=== PATIENT | female | born 1955 | race Caucasian/White ===

== ENCOUNTER 2017-11-04 15:56 | Outpatient (CLI) | payer OTHER ==
--- NOTE | 2017-11-04 16:37 | RAD ---
LATERAL NEUTRAL AND FLEXION AND EXTENSION IMAGING OF CERVICAL SPINE: Date: 11/04/17 COMPARISON: None. HISTORY: Neck pain. FINDINGS: The neutral lateral exam demonstrates normal vertebral body height and alignment with mild anterior o steophyte formation at C5-6 and C6-7. The C7-T1 level cannot be visualized on the neutral lateral vie w. With flexion, minimal anterolisthesis in the 1-2 mm range noted at C2-3 and C3-4. With extension, there is no anterolisthesis or retrolisthesis seen. IMPRESSION: No significant anterolisthesis or retrolisthesis seen on neutral lateral, flexion, or extension imagi ng. POS: [facility]
== END 2017-11-04 15:57 | disposition home or self-care (01) ==
LOC: TBSIIMAG 15:56
PROVIDERS: ATTEND Neurological Surgery
DX: M47.812 Spondylosis without myelopathy or radiculopathy, cervical region (principal)
CPT/HCPCS: 72040